=== PATIENT | female | born 1975 | race Caucasian/White ===

== ENCOUNTER 2018-03-27 10:45 | Day surgery (SDC) | payer MEDICAID ==
[~2018-03-27 10:45] MED LIST: Bupivacaine 0.5% 50 ML MDV ONE; Lidocaine 1% with EPINEPHrine 1:100,000 50 ML MDV ONE
[2018-03-27] MEDS ORDERED: Sodium Chloride 0.9% 1,000 ML IV SCH (11:15)
[2018-03-27] MEDS ORDERED: ceFAZolin 2 GM in Premix Bag 1 BAG IV ONE (12:30)
[2018-03-27] MEDS ORDERED: Propofol 200 MG/20 ML SDV ONE (12:38)
[2018-03-27] MEDS ORDERED: Midazolam 1 MG/ML 2 ML SDV ONE (12:38)
[2018-03-27] MEDS ORDERED: fentaNYL 100 MCG/2 ML SDV ONE (12:38)
[2018-03-27] MEDS ORDERED: Acetaminophen/HYDROcodone 325-5 MG Tab PO ONE (14:00)
--- NOTE | 2018-03-28 06:45 | OR ---
DATE OF PROCEDURE: 03/27/2018 PROCEDURE: Hematoma evacuation, left calf. Size of hematoma, approximately 20 cm x 10 cm. PREOPERATIVE DIAGNOSIS: Leg trauma. POSTOPERATIVE DIAGNOSIS: Leg trauma. COMPLICATION: None. BRASS WIND INSTRUMENTS TUBE BENDER: None. ANESTHESIA: MAC/local. RISKS: Risks, benefits, alternatives, and limitations including, but not limited to infection, bleeding, and chronic wound formation were explained to the patient, who wished to proceed. PROCEDURE IN DETAIL: The patient was placed in supine position. The hematoma was readily identified in the left calf. This was anesthetized with lidocaine and a single merary was created approximately 5 mm in size. A large amount of hematoma was able to be evacuated from this. This was used in conjunction with suction irrigation. A 10 flat Rigoberto-Pillai drain was then placed within this and then sutured into place. Dressings were applied. The patient tolerated the procedure well. Zack Fong MD /[id number]
== END 2018-03-27 15:10 | disposition home or self-care (01) ==
LOC: JP.SDS 10:45
PROVIDERS: ATTEND Surgery
DX: S80.12XA Contusion of left lower leg, initial encounter (principal); Z88.1 Allergy status to other antibiotic agents; Z88.6 Allergy status to analgesic agent; Z88.8 Allergy status to other drugs, medicaments and biological substances
CPT/HCPCS: 10140; A9270; J0690; J2250; J2704; J3010; J3490; J7030